=== PATIENT | female | born 1990 ===

== ENCOUNTER 2022-05-01 00:02 | Emergency (ER) | payer BC, MEDICAID, SELFPAY ==
[2022-05-01 00:06] VITALS: BP 144/93; PULSE 94; RESP 18; TEMP 37.4; O2SAT 99
--- NOTE | 2022-05-01 00:09 | ED_ITS ---
HPI - General Adult General: Chief complaint: General Medical Stated complaint: HIGH BLOOD PRESSURE Time Seen by Provider: 05/01/22 00:07 History of Present Illness: 31-year-old female comes in today for concerns of elevated blood pressure. Patient is [place] Citizen-speaking. We are using Google translate and a female significant other to converse. Patient has a history of blood pressure elevation that has not been treated in the past. Patient denies chest pain or shortness of breath. Patient does report a headache. Patient appears nontoxic. Review of the record notes the patient has a history of bipolar disorder and nicotine dependence. Associated symptoms: Reports headache(s); Deny chest pain, dyspnea, nausea or vomiting Review of Systems Const: Denies: fever(s) Card: Denies: chest pain Resp: Denies: dyspnea GI: Denies: nausea or vomiting Neuro: Reports: headache(s) PFS ED PFSH: Medical History (Updated 05/01/22 @ 01:17 by RICK Sellers) Psychiatric care Social History (Updated 12/06/21 @ 11:15 by Jorgito Hoyt LPN) Smoking and tobacco status: current some day smoker cigarettes Packs smoked per day: 0.10 Years cigarettes smoked: 15 Quit status (tobacco): has tried quititng Number of times tried to quit tobacco: 2 Second hand smoke exposure: No Smoking risk assessment/counseling performed?: No Alcohol intake: former Desire information about alcohol rehabilitation?: No Counseling given: No Desire information about substance/drug rehabilitation?: No Counseling given: No Physical Exam Const: COMMON NORMALS: alert HENMT: COMMON NORMALS: normocephalic HEAD & SCALP: normocephalic MOUTH: Normal oral and palatal mucosa present Neck/C-Spine: COMMON NORMALS: full ROM Resp: COMMON NORMALS: normal respiratory effort and clear to auscultation bilaterally AUSCULTATION: clear to auscultation bilaterally Cardio: COMMON NORMALS: regular rate and regular rhythm RATE: regular rate RHYTHM: regular rhythm GI: COMMON NORMALS: Soft to palpation and non-tender PALPATION: Yes Soft to palpation Extremity: COMMON NORMALS: normal to inspection Neuro: SENSORIUM/ORIENTATION: Yes alert Skin: COMMON NORMALS: turgor normal GENERAL SKIN EXAM: turgor normal Course Vital Signs: Vital signs: Vital Signs Temperature 99.3 F 05/01/22 00:06 Pulse Rate 94 03/02/23 00:06 Respiratory Rate 18 05/01/22 00:06 Blood Pressure 144/93 05/01/22 00:06 Pulse Oximetry 99 05/01/22 00:06 Oxygen Delivery Me thod 05/01/22 00:06 MDM - General Adult Medical Decision Making Patient comes in today with complaints of elevated blood pressure and headache. On exam lungs are clear to auscultation. Heart rate was regular. Abdomen soft nontender. No edema is noted in the extremities. Differential diagnosis includes but not limited to uncontrolled hypertension, headache, anxiety about health. Patient's headache was brought under control with 10 mg of Reglan and 1 hydrocodone tablet. Blood pressure still stayed in the 140s. Discussed with patient through Google translate her laboratories and recommendations for treatment. Patient reported understanding of care plan and need for follow-up with primary care. Patient did want to go ahead and start taking medication for her blood pressure. Patient was put on lisinopril 10 mg 1 tablet daily and was given a starting dose tonight. Patient reported understanding of care plan and need for follow-up or return to the ER. Discharge instructions was provided in [place] Citizen per Google translate. Lab Data 05/01/22 00:31 05/01/22 00:31 Laboratory Results WBC 7.9 10^3/uL (4.0-10.0) 05/01/22 00:31 RBC 4.18 10^6/uL (4.1-5.3) 05/01/22 00:31 Hgb 12.0 g/dL (11.5-15.3) 05/01/22 00:31 Hct 36.9 % (37.0-47.0) L 05/01/22 00:31 MCV 88.3 fl (81-99) 05/01/22 00:31 MCH 28.7 pg (28.0-34.0) 05/01/22 00:31 MCHC 32.5 g/dL (30.0-36.0) 05/01/22 00:31 RDW 13.2 % (12.1-15.1) 05/01/22 00:31 Plt Count 204 10^3/cmm (130-400) 05/01/22 00:31 MPV 10.6 fL (7.4-10.4) H 05/01/22 00:31 Neut % (Auto) 77.4 % 05/01/22 00:31 Lymph % (Auto) 15.0 % 05/01/22 00:31 [place] % (Auto) 6.0 % 05/01/22 00:31 Eos % (Auto) 0.9 % 05/01/22 00:31 Baso % (Auto) 0.4 % 05/01/22 00:31 Neut # (Auto) 6.08 10^3/uL (1.8-7.7) 05/01/22 00:31 Lymph # (Auto) 1.2 10^3/uL (0.8-4.8) 05/01/22 00:31 [place] # (Auto) 0.5 10^3/uL (0.2-0.9) 05/01/22 00:31 Eos # (Auto) 0.1 10^3/uL (0.0-0.8) 05/01/22 00:31 Baso # (Auto) 0.0 10^3/uL (0.0-0.1) 05/01/22 00:31 Nucleated RBC % (auto) 0 % 05/01/22 00: Nucleated RBCs # 0.0 /100WBC 05/01/22 00:31 Sodium 137 mmol/L (136-145) 05/01/22 00:31 Potassium 4.1 mmol/L (3.5-5.1) 05/01/22 00:31 Chloride 102 mmol/L (98-107) 05/01/22 00: Carbon Dioxide 23 mmol/L (22-29) 05/01/22 00:31 Anion Gap 16.1 (5-19) 05/01/22 00:31 BUN 9 mg/dL (6-20) 05/01/22 00:31 Creatinine 0.6 mg/dL (0.5-0.9) 05/01/22 00: GFR Calculation 118.2 mL/min (90-130) 05/01/22 00:31 Glucose 130 mg/dL (65-115) H 05/01/22 00:31 Calculated Osmolality 284 mOsm/kg (285-295) L 05/01/22 00: Calcium 9.2 mg/dL (8.5-10.5) 05/01/22 00:31 Total Bilirubin 0.2 mg/dL (0.15-1.2) 05/01/22 00:31 AST 32 U/L (0-32) 05/01/22 00:31 ALT 13 U/L (0-33) 05/01/22 00:31 Alkaline Phosphatase 49 U/L (35-105) 05/01/22 00:31 Total Protein 7.5 g/dL (6.6-8.7) 05/01/22 00:31 Albumin 4.3 g/dL (3.5-5.2) 05/01/22 00:31 Globulin 3.2 g/dL (1.3-4.6) 05/01/22 00:31 Urine Color Colorless (Yellow) 05/01/22 00:09 Urine Appearance Clear (CLEAR) 05/01/22 00:09 Urine pH 7 (5-7) 05/01/22 00:09 Ur Specific [place] 1.010 (1.005-1.030) 05/01/22 00:09 Urine Protein Neg (Negative) 05/01/22 00:09 Urine Glucose (UA) Norm (Normal) 05/01/22 00:09 Urine Ketones Negative (Negative) 05/01/22 00:09 Urine Blood Neg (Negative) 05/01/22 00:09 Urine Nitrate Negative (Negative) 05/01/22 00:09 Urine Bilirubin Neg (Negative) 05/01/22 00:09 Urine Urobilinogen Norm mg/dL (Negative) 05/01/22 00:09 Ur Leukocyte Esterase Negative (Negative) 05/01/22 00:09 Urine HCG, Qual Negative (Negative) 05/01/22 00:09 Discharge Plan Discharge Patient Disposition: Home Clinical Impression: Headache Qualifiers: Headache type: unspecified Headache chronicity pattern: acute headache Intractability: not intractable Qualified Code(s): R51.9 - Headache, unspecified Hypertension Qualifiers: Hypertension type: primary hypertension Qualified Code(s): I10 - Essential (primary) hypertension Condition: Stable Prescriptions: New lisinopril 10 mg tablet 10 mg PO DAILY Qty: 30 0RF No Action divalproex 250 mg tablet,delayed release (DR/EC) 250 mg PO BID Qty: 60 2RF risperidone [Risperdal] 1 mg tablet 1 mg PO BID Qty: 60 2RF trazodone 50 mg tablet 100 mg PO .HS PRN (Reason: insomnia) Qty: 60 2RF Discharge Orders: Discharge ED (Routine); Ordered 05/01/22 Ordered By: Rashaad Ames Patient Instructions: Opioid Safety, Pain Management Activity Restrictions/Additional Instructions: Home and rest. Eat a healthy diet with plenty of fresh fruits and vegetables and legumes. Try to stop smoking. Start medication lisinopril 10 mg 1 tablet daily. Take your medication routinely for best results. Follow-up with your primary care doctor in 1 week for recheck of blood pressure, and further treatment as needed. Return to the ER for worsening symptoms like severe headache, severe chest pain, or shortness of breath. Coding Level of Care Code ED Ergonomics Consultant for [facility] Watson
[2022-05-01 00:21] LABS: Add Urine Microscopic? NO; Charge for UA Resulting for Rev
[2022-05-01 00:24] LABS: Bilirubin Urine Neg (Negative); Blood Urine Neg (Negative); Glucose Urine UA Norm (Normal); Ketones Urine Negative (Negative); Leukocyte Esterase Urine Negative (Negative); Nitrate Urine Negative (Negative); Protein Urine Neg (Negative); Urine Appearance Clear (CLEAR); Urine Color Colorless (Yellow); Urobilinogen Urine Norm (Negative); pH Urine 7 (5-7)
[2022-05-01] MEDS: HYDROcodone-acetaminophen 5-325 mg Tablet 1 TAB PO (00:52)
[2022-05-01] MEDS: metoclopramide 10 mg Tablet PO (00:52)
[2022-05-01 00:54] LABS: Basophils % 0.4 %; Eosinophils # 0.1 10^3/uL (0.0-0.8); Eosinophils % 0.9 %; Hematocrit 36.9 % (37.0-47.0); Lymphocytes # 1.2 10^3/uL (0.8-4.8); Mean Corpuscular HGB Conc 32.5 g/dL (30.0-36.0); Mean Corpuscular Hemoglobin 28.7 pg (28.0-34.0); Mean Corpuscular Volume 88.3 fl (81-99); Mean Platelet Volume 10.6 fL (7.4-10.4); Monocytes # 0.5 10^3/uL (0.2-0.9); Neutrophils # 6.08 10^3/uL (1.8-7.7); Neutrophils % 77.4 %; Nucleated Red Blood Cells % 0 %; Platelet Count 204 10^3/cmm (130-400); Red Blood Count 4.18 10^6/uL (4.1-5.3); Red Cell Distribution Width 13.2 % (12.1-15.1); White Blood Count 7.9 10^3/uL (4.0-10.0)
[2022-05-01 00:56] LABS: Alanine Aminotransferase 13 U/L (0-33); Albumin Level 4.3 g/dL (3.5-5.2); Alkaline Phosphatase 49 U/L (35-105); Anion Gap 16.1 (5-19); Aspartate Amino Transferase 32 U/L (0-32); Blood Urea Nitrogen 9 mg/dL (6-20); Calcium 9.2 mg/dL (8.5-10.5); Carbon Dioxide 23 mmol/L (22-29); Chloride 102 mmol/L (98-107); Globulin 3.2 g/dL (1.3-4.6); Glomerular Filtration Rate 118.2 mL/min (90-130); Glucose 130 mg/dL (65-115); Osmolality Calculated 284 mOsm/kg (285-295); Potassium 4.1 mmol/L (3.5-5.1); Sodium 137 mmol/L (136-145); Total Bilirubin 0.2 mg/dL (0.15-1.2); Total Protein 7.5 g/dL (6.6-8.7)
[2022-05-01] MEDS: lisinopril 10 mg Tablet PO (01:29)
[2022-05-01 01:33] VITALS: BP 126/82; PULSE 87; RESP 18; TEMP 36.9; O2SAT 97
--- NOTE | 2022-05-12 15:01 | DCPLANNER ---
05.10. - patient was called due to no primary care physician - patient does not speak monegasque and hung up phone.
== END 2022-05-01 01:35 | disposition home or self-care (01) ==
PROVIDERS: Emergency Provider Nurse Practitioner Family
DX: I10 Essential (primary) hypertension (principal); R51.9 Headache, unspecified
CPT/HCPCS: 80053; 81003; 81025; 85025; 99283; J8597

== ENCOUNTER 2022-12-17 17:56 | Emergency (ER) | payer BC, MEDICAID, SELFPAY ==
[2022-12-17 18:09] VITALS: BP 138/93; PULSE 97; RESP 16; TEMP 36.8; O2SAT 100
--- NOTE | 2022-12-17 18:09 | ED_ITS ---
HPI - Nausea/Vomiting/Diarrhea General: Chief complaint: Urogenital-Female Stated complaint: nausea Time Seen by Provider: 12/17/22 17:58 Source: patient Mode of arrival: ambulatory Limitations: no limitations History of Present Illness: Patient is a 32-year-old female who presents to ED today with a complaint of stinging when she wipes/urinates and nausea. Patient states she had the symptoms before when she was and wonders if she could be now. She does report her menstrual cycle being late. Patient is not having pain anywhere. She has not noticed any vaginal discharge. No genitalia lesions/rashes. Patient is using the help of a cell phone everardo to translate as she does not speak Pashto. MD elicited complaint: nausea and other (possible ) Onset (ago): day(s) (3 days) Associated nausea: Yes Associated abdominal pain: No Location of pain: None Severity: mild Exacerbating factors: none Relieving factors: none Associated symtoms: Reports dysuria and nausea; Denies chest pain, dizziness, fatigue, headache(s) or malaise Review of Systems Const: Denies: fever(s), chills, body aches, fatigue or malaise Card: Denies: chest pain Resp: Denies: dyspnea GI: Reports: nausea; Denies: abdominal pain, vomiting, hematemesis, heartburn or change in bowel habits : Reports: dysuria and irregular period; Denies: flank pain, difficulty voiding, urinary frequency, urinary urgency, urinary hesitancy, dribbling, hematuria, genital lesions, genital pruritis, vaginal bleeding, vaginal discharge, metrorrhagia or pelvic pain Skin/Breast: Denies: rash Neuro: Denies: headache(s) or dizziness PFS ED PFSH: Medical History Psychiatric care Social History Smoking and tobacco/nicotine status: current some day tobacco/nicotine user cigarettes Packs smoked per day: 0.10 Years cigarettes smoked: 15 Quit status (tobacco/nicotine): has tried quititng Number of times tried to quit tobacco: 2 Second hand smoke exposure: No Alcohol intake: former Substance/Drug Use: never Physical Exam Const: COMMON NORMALS: no acute distress, average body habitus, patient oriented x3, no limitations, healthy appearing, alert and well nourished Resp: COMMON NORMALS: normal respiratory effort and clear to auscultation bilaterally AUSCULTATION: clear to auscultation bilaterally Cardio: COMMON NORMALS: regular rate and regular rhythm RATE: regular rate RHYTHM: regular rhythm GI: COMMON NORMALS: Normal to inspection, nondistended, normoactive bowel sounds present, Soft to palpation, non-tender, No hepatosplenomegaly present and no masses INSPECTION: Yes normal to inspection AUSCULTATION: Yes normoactive bowel sounds PALPATION: Yes Soft to palpation and Yes No hepatosplenomegaly present : COMMON NORMALS: Yes no CVA tenderness BLADDER/KIDNEY EXAM: Yes no CVA tenderness Back/Pelvis: COMMON NORMALS: no CVA tenderness Extremity: GENERAL: Yes normal exam except as noted Neuro: COMMON NORMALS: patient oriented x3 SENSORIUM/ORIENTATION: Yes alert Skin: COMMON NORMALS: no rashes or lesions noted GENERAL SKIN EXAM: no rashes or lesions noted Course Vital Signs: Vital signs: Vital Signs Temperature 98.2 F 12/17/22 19:11 Pulse Rate 97 12/17/22 19:11 Respiratory Rate 16 12/17/22 19:11 Blood Pressure 138/93 12/17/22 19:11 Pulse Oximetry 100 12/17/22 19:11 Oxygen Delivery Me thod Room Air 12/17/22 18:09 MDM - Nausea/Vomiting/Diarrhea Medical Decision Making Vital signs are normal. Blood work is completely unremarkable. Her urine is clear. negative. Patient seems satisfied with this and states she will follow-up with primary care provider. Return to ED precautions given. Lab Data 12/17/22 18:16 12/17/22 18:16 Laboratory Results WBC 7.74 10^3/uL (3.29-11.43) 12/17/22 18:16 RBC 4.23 10^6/uL (3.85-5.65) 12/17/22 18:16 Hgb 12.20 g/dL (11.27-16.99) 12/17/22 18:16 Hct 37.3 % (36-47) 12/17/22 18:16 MCV 88.2 fl (85-98) 12/17/22 18:16 MCH 28.8 pg (27-33) 12/17/22 18:16 MCHC 32.7 g/dL (30-55) 12/17/22 18:16 RDW 13.2 % (12.1-15.1) 12/17/22 18:16 Plt Count 209 10^3/cmm (157-399) 12/17/22 18:16 MPV 9.8 fL (7.4-10.4) 12/17/22 18:16 Neut % (Auto) 52.6 % 12/17/22 18:16 Lymph % (Auto) 33.1 % 12/17/22 18:16 [place] % (Auto) 9.7 % 12/17/22 18:16 Eos % (Auto) 3.9 % 12/17/22 18:16 Baso % (Auto) 0.6 % 12/17/22 18:16 Neut # (Auto) 4.07 10^3/uL (1.8-7.7) 12/17/22 18:16 Lymph # (Auto) 2.6 10^3/uL (0.8-4.8) 12/17/22 18:16 [place] # (Auto) 0.8 10^3/uL (0.2-0.9) 12/17/22 18:16 Eos # (Auto) 0.3 10^3/uL (0.0-0.8) 12/17/22 18:16 Baso # (Auto) 0.1 10^3/uL (0.0-0.1) 12/17/22 18:16 Nucleated RBC % (auto) 0 % 12/17/22 18:16 Nucleated RBCs # 0.0 /100WBC 12/17/22 18:16 Sodium 137 mmol/L (136-145) 12/17/22 18:16 Potassium 3.7 mmol/L (3.5-5.1) 12/17/22 18:16 Chloride 103 mmol/L (98-107) 12/17/22 18:16 Carbon Dioxide 24 mmol/L (22-29) 12/17/22 18:16 Anion Gap 13.7 (5-19) 12/17/22 18:16 BUN 12 mg/dL (6-20) 12/17/22 18:16 Creatinine 0.7 mg/dL (0.5-0.9) 12/17/22 18:16 GFR Calculation 98.3 mL/min (90-130) 12/17/22 18:16 Glucose 88 mg/dL (65-115) 12/17/22 18:16 Calculated Osmolality 283 mOsm/kg (285-295) L 12/17/22 18:16 Calcium 9.0 mg/dL (8.5-10.5) 12/17/22 18:16 Total Bilirubin 0.3 mg/dL (0.15-1.2) 12/17/22 18:16 AST 26 U/L (0-32) 12/17/22 18:16 ALT 11 U/L (0-33) 12/17/22 18:16 Alkaline Phosphatase 50 U/L (35-105) 12/17/22 18:16 Total Protein 7.9 g/dL (6.6-8.7) 12/17/22 18:16 Albumin 4.5 g/dL (3.5-5.2) 12/17/22 18:16 Globulin 3.4 g/dL (1.3-4.6) 12/17/22 18:16 HCG, Qual Negative (Negative) 12/17/22 18:16 Urine Color Yellow (Yellow) 12/17/22 18:37 Urine Appearance Clear (CLEAR) 12/17/22 18:37 Urine pH 6 (5-7) 12/17/22 18:37 Ur Specific [place] 1.015 (1.005-1.030) 12/17/22 18:37 Urine Protein Neg (Negative) 12/17/22 18:37 Urine Glucose (UA) Norm (Normal) 12/17/22 18:37 Urine Ketones Negative (Negative) 12/17/22 18:37 Urine Blood Neg (Negative) 12/17/22 18:37 Urine Nitrate Negative (Negative) 12/17/22 18:37 Urine Bilirubin Neg (Negative) 12/17/22 18:37 Urine Urobilinogen Norm mg/dL (Negative) 12/17/22 18:37 Ur Leukocyte Esterase Negative (Negative) 12/17/22 18:37 No radiology studies performed this visit Discharge Plan Discharge Patient Disposition: Home Clinical Impression: Nausea Condition: Stable Prescriptions: No Action lisinopril 10 mg tablet 10 mg PO DAILY Qty: 30 2RF divalproex 250 mg tablet,delayed release (DR/EC) 250 mg PO BID Qty: 60 2RF risperidone [Risperdal] 1 mg tablet 1 mg PO BID Qty: 60 2RF trazodone 50 mg tablet 100 mg PO .HS PRN (Reason: insomnia) Qty: 60 2RF Discharge Orders: Discharge ED (Routine); Ordered 12/17/22 Ordered By: Rosina Morrissey Coding Level of Care Code ED Position Description Manager for Sejal Watson
[2022-12-17 18:27] LABS: Basophils # 0.1 10^3/uL (0.0-0.1); Basophils % 0.6 %; Eosinophils # 0.3 10^3/uL (0.0-0.8); Eosinophils % 3.9 %; Hematocrit 37.3 % (36-47); Lymphocytes # 2.6 10^3/uL (0.8-4.8); Lymphocytes % 33.1 %; Mean Corpuscular HGB Conc 32.7 g/dL (30-55); Mean Corpuscular Hemoglobin 28.8 pg (27-33); Mean Corpuscular Volume 88.2 fl (85-98); Mean Platelet Volume 9.8 fL (7.4-10.4); Monocytes # 0.8 10^3/uL (0.2-0.9); Monocytes % 9.7 %; Neutrophils # 4.07 10^3/uL (1.8-7.7); Neutrophils % 52.6 %; Nucleated Red Blood Cells % 0 %; Platelet Count 209 10^3/cmm (157-399); Red Blood Count 4.23 10^6/uL (3.85-5.65); Red Cell Distribution Width 13.2 % (12.1-15.1); White Blood Count 7.74 10^3/uL (3.29-11.43)
[2022-12-17 18:40] LABS: HCG, Serum Qual Negative (Negative)
[2022-12-17 18:43] LABS: Add Urine Microscopic? NO; Charge for UA Resulting for Rev
[2022-12-17 18:45] LABS: Alanine Aminotransferase 11 U/L (0-33); Albumin Level 4.5 g/dL (3.5-5.2); Alkaline Phosphatase 50 U/L (35-105); Anion Gap 13.7 (5-19); Aspartate Amino Transferase 26 U/L (0-32); Blood Urea Nitrogen 12 mg/dL (6-20); Carbon Dioxide 24 mmol/L (22-29); Chloride 103 mmol/L (98-107); Globulin 3.4 g/dL (1.3-4.6); Glomerular Filtration Rate 98.3 mL/min (90-130); Glucose 88 mg/dL (65-115); Osmolality Calculated 283 mOsm/kg (285-295); Potassium 3.7 mmol/L (3.5-5.1); Sodium 137 mmol/L (136-145); Total Bilirubin 0.3 mg/dL (0.15-1.2); Total Protein 7.9 g/dL (6.6-8.7)
[2022-12-17 18:47] LABS: Bilirubin Urine Neg (Negative); Blood Urine Neg (Negative); Glucose Urine UA Norm (Normal); Ketones Urine Negative (Negative); Leukocyte Esterase Urine Negative (Negative); Nitrate Urine Negative (Negative); Protein Urine Neg (Negative); Specific Gravity, Urine 1.015 (1.005-1.030); Urine Appearance Clear (CLEAR); Urine Color Yellow (Yellow); Urobilinogen Urine Norm (Negative); pH Urine 6 (5-7)
[2022-12-17 19:11] VITALS: BP 138/93; PULSE 97; RESP 16; TEMP 36.8; O2SAT 100
== END 2022-12-17 19:12 | disposition home or self-care (01) ==
PROVIDERS: Emergency Provider Physician Assistant
DX: R11.0 Nausea (principal); F17.210 Nicotine dependence, cigarettes, uncomplicated
CPT/HCPCS: 36415; 80053; 81003; 84703; 85025; 99283

== ENCOUNTER → 2023-10-08 09:25 | Outpatient (BNVA) | payer BC, SELFPAY | PROVIDERS: Visit Provider Nurse Practitioner Psychiatric/Mental Health | DX: Z51.81 Encounter for therapeutic drug level monitoring (principal); Z79.899 Other long term (current) drug therapy | CPT/HCPCS: 80053; 80061; 80164; 81025; 83036 ==

== ENCOUNTER 2024-05-14 16:47 | Emergency (ER) | payer BC, MEDICAID, SELFPAY ==
[2024-05-14 16:51] VITALS: BP 127/74; PULSE 91; RESP 14; TEMP 36.3; O2SAT 99
--- NOTE | 2024-05-14 17:18 | ED_ITS ---
HPI - Dental/Oral General: Chief complaint: Dental/Oral Stated complaint: tooth pain Time Seen by Provider: 05/14/24 16:58 History of Present Illness: Patient is a nonenglish speaking female that presents with complaints of dental pain. She has several fractured teeth, dental caries, gingival swelling. Related Data Previous Rx's ?Medication ?Instructions ?Recorded lisinopril 10 mg tablet 10 mg PO DAILY #30 tabs 01/31 divalproex 125 mg tablet,delayed 125 mg PO BID #60 tab s 04/26/24 release risperidone 0.5 mg tablet 0.5 mg PO BID #60 tabs 04/26 amoxicillin 875 mg-potassium 1 tab PO BID #14 tabs clavulanate 125 mg tablet chlorhexidine gluconate 0.12 % 15 ml buccal BID #300 m L 05/14/24 mouthwash (Peridex) ketorolac 10 mg tablet 10 mg PO Q8H PRN pain 3 days #10 05/14/24 tabs Allergies Allergy/AdvReac Type Severity Reaction Status Date / Time No Known Allergies Allergy Verified 05/14/24 16:56 Review of Systems General: Reports: 10 or more systems reviewed and unremarkable except in HPI and below PFSH ED PFSH: Medical History (Updated 05/14/24 @ 17:19 by BERTA Salcedo) Psychiatric care Family History (Updated 12/30/22 @ 09:36 by Maura Ramirez LPN) Denies family history of Colon cancer Ovarian cancer Prostate cancer Diabetes Heart disease Hyperlipidemia Breast cancer Hypertension Uterine cancer Thyroid disease Stroke Physical Exam Const: COMMON NORMALS: no acute distress, patient oriented x3 and alert GENERAL APPEARANCE: cooperative ORIENTATION/CONSCIOUSNESS: Yes awake, Yes oriented to person, Yes oriented to place and Yes oriented to time HENMT: COMMON NORMALS: normocephalic and atraumatic HEAD & SCALP: normocephalic and atraumatic FACE & SINUS: normal facial exam MOUTH: Normal oral and palatal mucosa present, lip normal, Abnormal oral and palatal mucosa present and other (Dental fractures, dental caries, gingival swelling. No drainable abscess) THROAT: posterior oropharynx normal Chest: COMMONS NORMALS: normal inspection of the chest Breast/axilla inspection: Yes no chest deformity, asymmetry, normal contours, no nodules, masses, tenderness Resp: COMMON NORMALS: normal respiratory effort, No retractions and No use of accessory muscles EFFORT & INSPECTION: Yes able to speak in complete sentences and Yes symmetric chest movement Neuro: COMMON NORMALS: patient oriented x3 SENSORIUM/ORIENTATION: Yes alert, Yes oriented to person, Yes oriented to place and Yes oriented to time CRANIAL NERVES: Yes CN normal except as noted Psych: COMMON NORMALS: mental status grossly normal, Normal thought process present, cooperative, activity/motor behavior normal, denies homicidal ideation and denies suicidal ideation THOUGHT PROCESS: Normal thought process present Skin: COMMON NORMALS: no rashes or lesions noted, no wounds and turgor normal GENERAL SKIN EXAM: no rashes or lesions noted and turgor normal Course Vital Signs: Vital signs: Vital Signs Temperature 97.3 F L 05/14/24 16:51 Pulse Rate 91 05/14/24 16:51 Respiratory Rate 14 05/14/24 16:51 Blood Pressure 127/74 05/14/24 16:51 Pulse Oximetry 99 05/14/24 16:51 MDM - Dental/Oral Medical Decision Making Peridex, Augmentin, Toradol Referral to dental services She has no submandibular pain or swelling. No difficulty swallowing. No sore throat. Dental decay, caries, fractures and abscess seem to be primary culprit. She has some mild swelling in her cheeks. Going to treat her with antibiotics Peridex and Toradol. No radiology studies performed this visit Discharge Plan Discharge Patient Disposition: Home Clinical Impression: Dental caries, Gingival abscess, Toothache Condition: Stable Prescriptions: New amoxicillin-pot clavulanate 875-125 mg tablet 1 tab PO BID Qty: 14 0RF ketorolac 10 mg tablet 10 mg PO Q8H PRN (Reason: pain) 3 Days Qty: 10 0RF Rx Instructions: Do not take additional ibuprofen or other NSAIDs while taking ketorolac chlorhexidine gluconate [Peridex] 0.12 % mouthwash 15 ml buccal BID Qty: 300 0RF No Action divalproex 125 mg tablet,delayed release (DR/EC) 125 mg PO BID Qty: 60 2RF Rx Instructions: Take one tablet by mouth every morning and night risperidone 0.5 mg tablet 0.5 mg PO BID Qty: 60 2RF Rx Instructions: Take one tablet morning and night lisinopril 10 mg tablet 10 mg PO DAILY Qty: 30 2RF Discharge Orders: Discharge ED (Routine); Ordered 05/14/24 Ordered By: Evert Silva Discharge Diet: Advance as tolerated Discharge Activity: Resume usual activity Patient Instructions: Dental Abscess (ED), Pain Management Activity Restrictions/Additional Instructions: Please return to the emergency department for new, concerning, worsening symptoms Please follow-up with a dentist for further evaluation and management of your dental infection. Take your antibiotics as prescribed Print Language: Jordanian Coding Level of Care Code ED Sr Technical Sales Consultant for [facility] Watson
[2024-05-14] MEDS: ketorolac 30 mg/mL INJ IM (17:26)
[2024-05-14] MEDS: chlorhexidine gluconate 0.12% UDC 15 mL MUCOUS MEM (17:27)
[2024-05-14 17:31] VITALS: PULSE 92; O2SAT 100
== END 2024-05-14 17:32 | disposition home or self-care (01) ==
PROVIDERS: Emergency Provider Nurse Practitioner
DX: K02.9 Dental caries, unspecified (principal); K05.20 Aggressive periodontitis, unspecified; K08.89 Other specified disorders of teeth and supporting structures
CPT/HCPCS: 96372; 99284; J1885; J9999

== ENCOUNTER 2024-07-01 21:07 | Emergency (ER) | payer BC, MEDICAID, SELFPAY ==
[2024-07-01 21:15] VITALS: BP 120/80; PULSE 100; RESP 14; TEMP 36.3; O2SAT 100
--- NOTE | 2024-07-01 23:08 | W.ED.DENTAL ---
HPI - Dental/Oral General: Chief complaint: Dental/Oral Stated complaint: right side dental pain with trouble swollowing Time Seen by Provider: 07/01/24 22:20 Source: patient Mode of arrival: ambulatory Limitations: no limitations History of Present Illness: 33yo female presents with right upper dental pain that started today. Patient reports she has had infection to the area previously. States she does have an appointment with her dentist next month. Patient denies fever, difficulty swallowing, any other concerns at this time. Associated symptoms: Denies fever(s) Related Data Previous Rx's ?Medication ?Instructions ?Recorded lisinopril 10 mg tablet 10 mg PO DAILY #30 tabs 02/18/23 divalproex 250 mg tablet,delayed 250 mg PO BID #60 tabs 06/30/24 release risperidone 1 mg tablet 1 mg PO BID #60 tabs 06/30/24 amoxicillin 875 mg-potassium 1 tab PO BID #14 tabs 07/01/24 clavulanate 125 mg tablet chlorhexidine gluconate 0.12 % 15 ml buccal BID #300 mL 07/01/24 mouthwash ketorolac 10 mg tablet 10 mg PO Q6H PRN pain 5 days #20 07/01/24 tabs Allergies Allergy/AdvReac Type Severity Reaction Status Date / Time No Known Allergies Allergy Verified 07/01/24 21:18 Review of Systems Const: Denies: fever(s) or chills ENMT: Reports: dental pain; Denies: swelling of lips/tongue PFSH ED PFSH: Medical History (Updated 07/01/24 @ 23:13 by RICK Lamb) Psychiatric care Family History (Updated 12/30/22 @ 09:36 by Maura Ramirez LPN) Denies family history of Colon cancer Ovarian cancer Prostate cancer Diabetes Heart disease Hyperlipidemia Breast cancer Hypertension Uterine cancer Thyroid disease Stroke Physical Exam Const: COMMON NORMALS: no acute distress, patient oriented x3, healthy appearing and alert GENERAL APPEARANCE: cooperative ORIENTATION/CONSCIOUSNESS: Yes awake OTHER: Patient is ambulatory to the exam room unassisted. She is sitting upright on the stretcher no acute distress. She is able to give history with no difficulty. She is interactive with exam appropriately. No family is at bedside HENMT: TEETH & GINGIVA: Yes other (mild swelling, dental fracture, no drainable abscess noted) Neck/C-Spine: COMMON NORMALS: full ROM Chest: CHEST: Yes Symmetrical chest wall rise Resp: COMMON NORMALS: normal respiratory effort EFFORT & INSPECTION: Yes able to speak in complete sentences Neuro: COMMON NORMALS: patient oriented x3 SENSORIUM/ORIENTATION: Yes alert Course Vital Signs: Vital signs: Vital Signs Temperature 97.3 F L 07/01/24 21:15 Pulse Rate 100 07/01/24 21:15 Respiratory Rate 14 07/01/24 21:15 Blood Pressure 120/80 07/01/24 21:15 Pulse Oximetry 100 07/01/24 21:15 MDM - Dental/Oral Medical Decision Making 33yo female presents with right upper dental pain that started today. Patient reports she has had infection to the area previously. States she does have an appointment with her dentist next month. Patient denies fever, difficulty swallowing, any other concerns at this time. Patient is nontoxic in appearance. Vital signs are stable. No indication of Ludewig's. Patient does have a history of an infection to the area from a broken tooth. She does have an appointment with her dentist next month. Will proceed with antibiotics for concern of infection. Augmentin prescribed as well as chlorhexidine mouthwash and ketorolac. Recommend she keep her previously scheduled appointment with her dentist. Return precautions provided. Patient states understanding and has no further questions or concerns at this time. No radiology studies performed this visit Discharge Plan Discharge Patient Disposition: Home Clinical Impression: Dental infection, Pain, dental Condition: Stable Prescriptions: New amoxicillin-pot clavulanate 875-125 mg tablet 1 tab PO BID Qty: 14 0RF ketorolac 10 mg tablet 10 mg PO Q6H PRN (Reason: pain) 5 Days Qty: 20 0RF chlorhexidine gluconate 0.12 % mouthwash 15 ml buccal BID Qty: 300 0RF Discontinued chlorhexidine gluconate [Peridex] 0.12 % mouthwash 15 ml buccal BID Qty: 300 0RF No Action lisinopril 10 mg tablet 10 mg PO DAILY Qty: 30 2RF risperidone 1 mg tablet 1 mg PO BID Qty: 60 2RF Rx Instructions: Take one tablet morning and night divalproex 250 mg tablet,delayed release (DR/EC) 250 mg PO BID Qty: 60 2RF Rx Instructions: Take one tablet morning and night Discharge Orders: Discharge ED (Routine); Ordered 07/01/24 Ordered By: Jadon Stahl Discharge Diet: Usual diet Discharge Activity: Resume usual activity Patient Instructions: Dental Abscess (ED), Pain Management Activity Restrictions/Additional Instructions: Antibiotics have been sent to your pharmacy to begin treatment of dental infection Chlorhexidine mouthwash has been sent as well as ketorolac to help with the pain. Do not take ibuprofen or naproxen while taking ketorolac Keep your previously scheduled appointment with your dentist later this month Return to the emergency department if any rapid worsening symptoms, difficulty swallowing, painful tongue movements, and as needed Print Language: Montserratian Coding Level of Care Code ED Yarn Finisher for [facility] Watson
[2024-07-01] MEDS: amoxicillin-clav 875-125 mg Tablet 1 TAB PO (23:20)
== END 2024-07-01 23:24 | disposition home or self-care (01) ==
PROVIDERS: Emergency Provider Nurse Practitioner
DX: K04.7 Periapical abscess without sinus (principal); K08.89 Other specified disorders of teeth and supporting structures
CPT/HCPCS: 99283; J9999

== ENCOUNTER → 2024-10-06 09:54 | Outpatient (BNVA) | payer BC, SELFPAY | PROVIDERS: Visit Provider Nurse Practitioner Psychiatric/Mental Health | DX: Z79.899 Other long term (current) drug therapy (principal); Z51.81 Encounter for therapeutic drug level monitoring | CPT/HCPCS: 80053; 80061; 80164; 81025; 83036 ==